=== PATIENT | female | born 1970 | race Caucasian/White ===

== ENCOUNTER 2017-01-08 06:10 | Inpatient (IN) | payer OTHER ==
[~2017-01-08] VITALS: Ht 152.4 cm; Wt 69.1 kg
[~2017-01-08 06:10] MED LIST: COLACE100 MG PO; COREG12.5 MG PO; FENOFIBRATE54 M1 PO; FLA500 PO; LAC PO; LEVAQUIN750 MG PO; MOTRIN800 MG PO; ZESTRIL20 MG PO
--- NOTE | 2017-01-08 08:54 | NUR ---
PT TO BED T1 FOR C/O HEADACHE, NECK PAIN, INTERMITTENT FEVER AND VOMITING, PT REPORTS HEADACHE AND NECK PAIN X 3 WEEKS, DENIES RECENT TRAUMA FALL OR INJURY, PT STS FEVER LAST NIGHT AND VOMITING 2 DAYS AGO, STS LAST VOMITING EPISODE WAS 2 DAYS AGO AND DENIES SEEING BLOOD IN EMESIS, PT REPORTS WAS SEEN BY PMD 1 WEEK AGO AND WAS PRESCRIBED BACTRIM FOR URINE INFECTION, PT DENIES URINARY SX, STS COMPLETED ABX WITH NO RELIEF OF COLLINS, STS PAIN TO FOREHEAD AREA WHICH RADIATES TO BACK OF HEAD AND BOTH SIDES OF NECK, PT ABLE TO ROTATE NECK WITH OUT ANY PROBLEMS, STS TOOK EXCEDRIN APPROX 0400 IN THE MORNING, PT AAOX4, SPEAKS IN CLEAR AND COMPLETE SENTENCES, PT AMBULATORY WITH STEADY GAIT, RESP EVEN AND UNLABORED, IN NO ACUTE DISTRESS, WILL CONTINUE TO MONITOR
--- NOTE | 2017-01-08 10:53 | NUR ---
DR. CHAVES AT BEDSIDE FOR EVAL
--- NOTE | 2017-01-08 11:09 | NUR ---
VERIFIED WITH PT THAT SHE DID NOT DRIVE HERE AND HAS A RIDE FROM [facility]ILY [facility] VIA PRIVATE AUTO BEFORE MED ADMINISTRATION
--- NOTE | 2017-01-08 11:14 | NUR ---
[facility] RAD[facility]OLOG[facility] AT BEDSIDE FOR CXR, PT SIGNED CONSENT FORM REGARDING LP PROCEDURE, PROCEDURE DISCUSSED BY DR. CHAVES
--- NOTE | 2017-01-08 11:23 | NUR ---
PT TAKEN TO CT VIA W/C IN A STABLE CONDITION
[2017-01-08 11:28] LABS: microscopic required? YES; urine erythrocyte 3+ (NEGATIVE)
--- NOTE | 2017-01-08 11:38 | NUR ---
PT BACK FROM CT WITH NO INCIDENCE, LAB AT BEDSIDE FOR BLOOD DRAW AND SECOND SET OF BLOOD CX
[2017-01-08 11:48] LABS: CALCIUM 8.2 mg/dL (8.5-10.1); CARBON DIOXIDE 21.6 mmol/L (21-32); CREATININE SERUM 2.3 mg/dL (0.6-1.0); POTASSIUM SERUM 4.3 mmol/L (3.5-5.1)
[2017-01-08 11:54] LABS: ALBUMIN 3.6 g/dL (3.4-5.0); BILIRUBIN TOTAL 0.26 mg/dL (0.20-1.00)
--- NOTE | 2017-01-08 12:06 | NUR ---
MEDICATIONS ADMINISTERED PER MD ORDER, PLEASE SEE EMAR, PT TOLERATED WELL, DR. CHAVES AND CATRACHITA, EMT AT BEDSIDE FOR LP PROCEDURE AT THIS TIME, PT RESP EVEN AND UNLABORED, IN NO ACUTE DISTRESS, WILL CONTINUE TO MONITOR
--- NOTE | 2017-01-08 12:22 | NUR ---
PT TOLERATED PROCEDURE WELL, CSF SAMPLES COLLECTED AND SENT TO LAB, PT RESTING IN BED IN SUPINE POSITION PER DR. CHAVES'S ORDER, PT RESP EVEN AND UNLABORED, IN NO ACUTE DISTRESS, ON FULL MONITORS, CALL LIGHT WITHIN REACH, WILL CONTINUE TO MONITOR
[2017-01-08 12:25] LABS: PLATELET COUNT 139 x10^3mcL (130-400); RED CELL DISTRIBUTION WIDTH 14.4 % (11.5-14.5)
[2017-01-08 12:27] LABS: BAND NEUTROPHIL 7 % (0-10); BASOPHIL 0 % (0-2); MONOCYTE 11 % (0-7); PLATELET MORPHOLOGY PLATELETS NORMAL; SEGMENTED NEUTROPHILS 55 % (37-75)
[2017-01-08 13:17] LABS: TOTAL PROTEIN CSF 28.8 mg/dL (15-45)
[2017-01-08 13:38] LABS: APPEARANCE CSF CLEAR; COLOR CSF COLORLESS
[2017-01-08 13:40] LABS: APPEARANCE CSF CLEAR; COLOR CSF COLORLESS; RBC CSF 0 /cumm (0); WBC CSF 0 /cumm (0-5); WBC CSF 1 /cumm (0-5)
--- NOTE | 2017-01-08 14:29 | NUR ---
PT REPORTS PAIN LOWERED TO 4/10 AT THIS TIME, PT RESTING IN BED IN A POSITION OF COMFORT, RESP EVEN AND UNLABORED, PT IN NO ACUTE DISTRESS, CALL LIGHT WITHIN REACH, WILL CONTINUE TO MONITOR
[2017-01-08] MEDS ORDERED: HCTZ/LISINOPRIL1 TA1 PO (14:31)
[2017-01-08] MEDS ORDERED: FENOFIBRATE54 M1 PO (14:31)
[2017-01-08] MEDS ORDERED: XANAX0.5 MG PO (14:32)
[2017-01-08] MEDS ORDERED: RANITIDINE HYD150 M2 PO (14:32)
[2017-01-08] MEDS ORDERED: EXCEDRIN MIGRA1 EAC1 PO (14:32)
--- NOTE | 2017-01-08 15:15 | NUR ---
MRSA SWAB COLLECTED AND SENT TO LAB
--- NOTE | 2017-01-08 15:43 | NUR ---
REPORT GIVEN TO SANDRA BONILLA TELE FLOOR TO ASSUME CARE OF PT AFTER TRANSPORT
[2017-01-08 16:08] LABS: CHOLESTEROL/HDL RATIO 3.4; MAGNESIUM 1.8 mg/dL (1.8-2.4); PHOSPHOROUS 3.6 mg/dL (2.5-4.9); T3 TOTAL 1.06 ng/mL
[2017-01-08 16:22] VITALS: BP 96/51
--- NOTE | 2017-01-08 16:31 | NUR ---
RECEIVED PATIENT FROM ED VIA GUERNEY, PATIENT IN NO ACUTE DISTRESS, C/O PAIN AND WILL MEDICATE ORDERED, TELE # 4 SR, IV ACCESS TO LFA WNL, PATIENT ALERT AND ORIENTED, ORIENTED PATIENT TO ROOM AND SURROUNDINGS, BED IN LOW POSITION, BED RAILS UP X 2, CALL LIGHT WITHIN REACH, WILL ENDORSE CARE TO PRIMARY NURSE ISMAEL FLORES
[2017-01-08 16:34] LABS: FREE T4 1.18 ng/dL (0.76-1.46); FREE THYROXINE INDEX 3.5 ug/dL (1.4-4.5); T4(THYROXINE) 10.7 ug/dL (4.7-13.3)
--- NOTE | 2017-01-08 17:49 | NUR ---
AT 1630 - RECEIVED PATIENT FROM ADMITTING NURSE. C/O HEADACHE 02/10. AMBULATED TO BATHROOM AND BACK TO BED. IV INFUSING NS AT 100ML/HR. AT 1645 - MEDICATED WITH NORCO PER EMAR. AT 1745 - REPROTS THAT HEADACHE HAS SUBSIDED.
[2017-01-08 18:31] LABS: AMPHETAMINE QUAL UR NONE DETECTED (NEG <=1000)
--- NOTE | 2017-01-08 19:02 | NUR ---
HEADACHE UNDER CONTROL. HAS EATEN DINNER. IV INFUSING NS AT 100ML/HR. WILL ENDORSE CARE TO NIGHT NURSE.
--- NOTE | 2017-01-08 19:30 | NUR ---
RECEIVED REPORT FROM SANDRA GUEVARA. PT RESTING IN BED COMFORTABLY IN NO ACUTE DISTRESS OR DISCOMFORT. AAOX4. ADMITS TO A 4/10 COLLINS AT THIS TIME BUT TOLERABLE. DENIES OF DIZZINESS. ON TELE MON 4 SR WITH ELEVATED T. DENIES OF ANY CHEST DISCMFORT AT THIS TIME. PER PULSES STRONG. NEG ON EDEMA. IN RA WITH SAT OF 97%. BREATHING EVENLY AND UNLABORED. NO SOB NOTED. LUNGS CTA. AMBULATES STEADILY. PT SP LP TODAY, PUNCTURE SITE INTACT COVERED WITH BAND AID. IV ON LFA PATENT. NO FEVER AT THIS TIME. SAFETY MEASURES ENSURED. INSTRUCTED PT TO CALL FOR ANY NEEDS/ASSISTANCE. CALL LIGHT WITHIN REACH. WILL CONT TO MONITOR PT.
[2017-01-08 21:20] VITALS: BP 96/48
--- NOTE | 2017-01-09 05:10 | NUR ---
PAIN MANAGEMENT ENFORCED. PT SLEPT COMFORTABLY THROUGH OUT THE NIGHT. WAS IN NO ACUTE DISTRESS. SAFETY MEASURES WERE ENSURED. CALL LIGHT WITHIN REACH.
[2017-01-09 06:53] VITALS: BP 107/56
[2017-01-09 07:00] LABS: BASOPHIL % 0.2 % (0-2); PLATELET COUNT 141 x10^3mcL (130-400); RED CELL DISTRIBUTION WIDTH 14.3 % (11.5-14.5)
[2017-01-09 07:12] LABS: CALCIUM 7.9 mg/dL (8.5-10.1); CARBON DIOXIDE 19.8 mmol/L (21-32); CREATININE SERUM 1.5 mg/dL (0.6-1.0); MAGNESIUM 1.7 mg/dL (1.8-2.4); PHOSPHOROUS 2.8 mg/dL (2.5-4.9); POTASSIUM SERUM 4.1 mmol/L (3.5-5.1)
--- NOTE | 2017-01-09 07:38 | NUR ---
AT 0720 - RECEIVED PATIENT FROM NIGHT NURSE. PATIENT AWAKE, ALERT AND ORIENTED X 4. REPORTS THAT HEADACHE IS UNDER CONTROL AT THIS TIME. IV INFUSING NS AT 100ML/HR. MONITOR SHOWING SINUS RHYTHM WITH BBB; RATE 55. CONTINUING TO MONITOR.
--- NOTE | 2017-01-09 09:20 | NUR ---
AT 0900 - SEEN BY DR MORROW DURING MORNING ROUNDS. MEDICAL TEAM DOCTORS, EMILY GENTILE AND MYSELF PRIMARY NURSE ALSO PRESENT. DR MORROW SPOKE WITH PATIENT ABOUT PLAN OF TREATMENT INCLUDING HEADACHE CONTROL. PATIENT VERBALIZED AGREEMENT WITH PLAN.
[2017-01-09 10:04] VITALS: BP 96/52
--- NOTE | 2017-01-09 10:47 | NUR ---
MEDICATED WITH IV TORADOL PER EMAR.
--- NOTE | 2017-01-09 12:46 | NUR ---
PATIENT RESTING QUIETLY HAS ALSO BEEN GIVEN FLEXERIL PER EMAR.
[2017-01-09 14:08] VITALS: BP 119/47
[2017-01-09 14:40] LABS: CALCIUM 7.8 mg/dL (8.5-10.1); CARBON DIOXIDE 21.8 mmol/L (21-32); CREATININE SERUM 1.9 mg/dL (0.6-1.0); POTASSIUM SERUM 4.6 mmol/L (3.5-5.1)
[2017-01-09 14:50] LABS: BASOPHIL % 0.2 % (0-2); RED CELL DISTRIBUTION WIDTH 14.4 % (11.5-14.5)
[2017-01-09 14:55] LABS: PLATELET COUNT 129 x10^3mcL (130-400)
--- NOTE | 2017-01-09 18:39 | NUR ---
AFTER RECEIVING FLEXERIL PATIENT SLEPT FOR A FEW HOURS. NOW REPORTS THAT HEADACHE HAS COMPLETELY RESOLVED. HAS BEEN TO RADIOLOGY FOR CT OF SINUSES. IV IFUSION REMAINS AT 100 ML/HR NS. VSS AFEBRILE. WILL ENDORSE CARE TO NIGHT NURSE.
--- NOTE | 2017-01-09 19:30 | NUR ---
PT IS AAOX4. NO ACUTE DISTRES NOTED. ON TELE 4 WITH A HR OF 61, BBB. ABD IS ROUND, SOFT, NON-DISTENDED. BOWEL SOUNDS ACTIVE. THERE IS A IV IN THE LFA THAT IS INFUSING 100 ML/HR NS. BED IS IN LOWEST POSITION AND CALL LIGHT IS WITHIN REACH. WILL CONTINUE TO MONITOR
--- NOTE | 2017-01-09 19:44 | NUR ---
PT STATES COLLINS 09/10. TORADOL ADMINISTERED. WILL CONTINUE TO MONITOR.
[2017-01-09 21:16] VITALS: BP 110/77
--- NOTE | 2017-01-09 21:40 | NUR ---
DR. BARRERA MADE AWARE OF THE DUPLICATE MAG-OX ORDER. SHE STATED SHE WILL DC IT WHEN SHE IS DONE WITH HER PROCEDURE.
--- NOTE | 2017-01-10 01:06 | NUR ---
PT IS SLEEPING COMFORTABLY IN BED. NO ACUTE DISTRESS NOTED. BED IN LOWEST POSITION AND CALL LIGHT IS WITHIN REACH. WILL CONTINUE TO MONITOR.
--- NOTE | 2017-01-10 05:26 | NUR ---
PT IS SLEEPING COMFORTABLY IN BED. NO ACUTE DISTRESS NOTED AT THIS TIME. BED IS IN THE LOWEST POSITION AND ALL NEEDS HAVE BEEN MET. CALL LIGHT WITHIN REACH. WILL ENDORSE TO MORNING SHIFT.
[2017-01-10 06:01] VITALS: BP 106/50
[2017-01-10 06:20] LABS: CALCIUM 7.8 mg/dL (8.5-10.1); CARBON DIOXIDE 21.4 mmol/L (21-32); CREATININE SERUM 1.5 mg/dL (0.6-1.0); MAGNESIUM 1.7 mg/dL (1.8-2.4); POTASSIUM SERUM 4.7 mmol/L (3.5-5.1)
[2017-01-10 07:04] LABS: BASOPHIL % 0.3 % (0-2)
[2017-01-10 07:17] LABS: PLATELET COUNT 122 x10^3mcL (130-400); RED CELL DISTRIBUTION WIDTH 14.7 % (11.5-14.5)
--- NOTE | 2017-01-10 07:30 | NUR ---
PATIENT RECEIVED SOUND ASLEEP LYING ON RIGHT SIDE. NO SIGN OF DISTRESS.
[2017-01-10 08:01] VITALS: BP 124/56
[2017-01-10] MEDS ORDERED: CYCLOBENZAPRINE5 MG PO (08:55)
[2017-01-10] MEDS ORDERED: LISINOPRIL10 MG PO (09:03)
[2017-01-10] MEDS ORDERED: OSCD PO (09:07)
[2017-01-10] MEDS ORDERED: CARVEDILOL6.25 M1 PO (09:09)
--- NOTE | 2017-01-10 12:59 | NUR ---
PATIENT COMPLAINING OF MUSCLE PAIN ON NECK 12/11. PRN MEDS FOR MUSCLE SPASM ADMINISTERED.
[2017-01-10 13:04] VITALS: BP 124/56
[2017-01-10 13:18] VITALS: Ht 152.4 cm; Wt 69.1 kg
[2017-01-10 13:35] VITALS: BP 124/67
--- NOTE | 2017-01-10 14:48 | NUR ---
PATIENT ALERT AND IN STABLE CONDITION. VITALS ARE STABLE AND PATIENT DENIES PAIN. D/C INSTRUCTION GIVEN INCLUDING FOLLOWUP APPOINTMENT WITH PRIMARY PHYSICIAN, IN PATIENT AND HOME MEDICATIONS, D/C HEP LOCK, D/C TELE MONITOR. AWAITING ARRIVAL OF HER DAD TO TAKE HER HOME.
== END 2017-01-10 17:21 | disposition home or self-care (01) | DRG 102 ==
LOC: ED 06:10 → DU 14:57
PROVIDERS: Emergency Medicine; ADMIT Family Medicine
DX: G44.209 Tension-type headache, unspecified, not intractable (principal); N17.0 Acute kidney failure with tubular necrosis; E87.1 Hypo-osmolality and hyponatremia; R01.1 Cardiac murmur, unspecified; E83.51 Hypocalcemia; D18.03 Hemangioma of intra-abdominal structures; I11.9 Hypertensive heart disease without heart failure; K76.0 Fatty (change of) liver, not elsewhere classified; D63.8 Anemia in other chronic diseases classified elsewhere; K21.9 Gastro-esophageal reflux disease without esophagitis; Z72.0 Tobacco use; Z68.29 Body mass index [BMI] 29.0-29.9, adult
CPT/HCPCS: 83880; 84439; C9113; J0696; J1100; J1885; J2405; J3010; J3475; J7030; J8597; Q0092

== ENCOUNTER 2017-11-01 22:19 | Emergency (ER) | payer OTHER ==
[~2017-11-01] VITALS: Ht 154.9 cm; Wt 57.8 kg
[~2017-11-01 22:19] MED LIST changes: +CARVEDILOL6.25 M1 PO; +CYCLOBENZAPRINE5 MG PO; +EXCEDRIN MIGRA1 EAC1 PO; +HCTZ/LISINOPRIL1 TA1 PO; +LISINOPRIL10 MG PO; +OSCD PO; +RANITIDINE HYD150 M2 PO; +XANAX0.5 MG PO
[2017-11-01 22:30] VITALS: Ht 154.9 cm; Wt 57.8 kg
[2017-11-01 23:44] LABS: BASOPHIL % 0.5 % (0-2); PLATELET COUNT 226 x10^3mcL (130-400)
[2017-11-01 23:45] LABS: RED CELL DISTRIBUTION WIDTH 17.5 % (11.5-14.5)
[2017-11-02 00:04] LABS: CALCIUM 8.3 mg/dL (8.5-10.1); CARBON DIOXIDE 24.6 mmol/L (21-32); CHLORIDE SERUM 105 mmol/L (98-107); GFR1 > 60 mL/min; GLUCOSE SERUM 97 mg/dL (74-106); POTASSIUM SERUM 3.5 mmol/L (3.5-5.1); SODIUM SERUM 138 mmol/L (136-145)
[2017-11-02 00:42] VITALS: BP 96/58
== END 2017-11-02 00:42 | disposition home or self-care (01) ==
LOC: ED 22:19
DX: B34.9 Viral infection, unspecified (principal); D64.9 Anemia, unspecified; R20.2 Paresthesia of skin; I10 Essential (primary) hypertension; E78.00 Pure hypercholesterolemia, unspecified
CPT/HCPCS: 36415

== ENCOUNTER 2019-03-10 00:42 | Emergency (ER) | payer OTHER ==
[~2019-03-10] VITALS: Ht 154.9 cm; Wt 60.8 kg
[2019-03-10 00:47] VITALS: BP 170/91; Ht 154.9 cm; Wt 60.8 kg
== END 2019-03-10 03:38 | disposition left against medical advice (07) ==
LOC: ED 00:42
DX: Z53.21 Procedure and treatment not carried out due to patient leaving prior to being seen by health care provider (principal)

== ENCOUNTER 2019-12-16 02:47 | Emergency (ER) | payer OTHER ==
[~2019-12-16] VITALS: Ht 154.9 cm; Wt 59.0 kg
[2019-12-16 02:53] VITALS: Ht 154.9 cm; Wt 59.0 kg
[2019-12-16 05:54] VITALS: BP 100/64
== END 2019-12-16 05:54 | disposition home or self-care (01) ==
LOC: ED 02:47
DX: S05.12XA Contusion of eyeball and orbital tissues, left eye, initial encounter (principal); S05.11XA Contusion of eyeball and orbital tissues, right eye, initial encounter; I10 Essential (primary) hypertension; E78.00 Pure hypercholesterolemia, unspecified; X58.XXXA Exposure to other specified factors, initial encounter; Y93.89 Activity, other specified; Y92.89 Other specified places as the place of occurrence of the external cause; Y99.8 Other external cause status